=== PATIENT | male | born 1970 | race Caucasian/White ===

== ENCOUNTER 2020-08-28 16:30 | Outpatient (CLI) | payer OTHER, SELFPAY ==
--- NOTE | ~2020-08-28 | MR_ITS ---
EXAMINATION: MR cervical spine wo con DATE: 08/28/2020 17:43 INDICATION: Neck pain. TECHNIQUE: Magnetic resonance imaging (MRI) of the cervical spine was performed without intravenous c ontrast. Sequences included sagittal T2-weighted FSE, sagittal STIR FSE, sagittal T1-weighted FSE, ax ial MERGE, and axial T2-weighted FSE. COMPARISON: None FINDINGS: There is 2 mm retrolisthesis of C5 on C6 and 3 mm retrolisthesis of C6 on C7. Vertebral bod y heights are normal. There is mildly decreased disc height at C4-C5 and C5-C6 and moderately decreas ed disc height at C6-C7. The spinal cord signal intensity is normal. The following disc levels are sp ecifically discussed: C2-C3: The disc does not extend beyond the endplate margin. There is no uncovertebral joint osteoarth ritis. There is mild bilateral facet joint osteoarthritis. There is no neural foraminal stenosis. The re is no central canal stenosis. C3-C4: The disc is bulging. There is mild left uncovertebral joint osteoarthritis. There is no facet joint osteoarthritis. There is mild left neural foraminal stenosis. There is no central canal stenosi s. C4-C5: The disc is bulging. There is mild left uncovertebral joint osteoarthritis. There is no facet joint osteoarthritis. There is no neural foraminal stenosis. There is mild central canal stenosis. C5-C6: The disc is bulging. There is no uncovertebral joint osteoarthritis. There is no facet joint o steoarthritis. There is no neural foraminal stenosis. There is mild central canal stenosis. C6-C7: There is bulging. There is severe bilateral uncovertebral joint osteoarthritis. There is no fa cet joint osteoarthritis. There is mild right and moderate left neural foraminal stenosis. There is m ild central canal stenosis. C7-T1: The disc does not extend beyond the endplate margin. There is no uncovertebral joint osteoarth ritis. There is mild bilateral facet joint osteoarthritis. There is no neural foraminal stenosis. The re is no central canal stenosis. IMPRESSION: 1. Moderate cervical spondylosis. Reviewed, dictated and finalized at location A.
== END 2020-08-28 16:31 | disposition home or self-care (01) ==
LOC: ANHIMG 16:31
PROVIDERS: PCP Family Medicine; Visit Provider Orthopaedic Surgery
DX: M47.812 Spondylosis without myelopathy or radiculopathy, cervical region (principal); M48.02 Spinal stenosis, cervical region
CPT/HCPCS: 72141

== ENCOUNTER 2020-11-20 06:35 | Emergency (ER) | payer OTHER, SELFPAY ==
[2020-11-20] VITALS (27 sets, daily range): BP systolic 136–157; BP diastolic 84–96; PULSE 88–112; RESP 11–24; TEMP 36.8; O2SAT 68–100
--- NOTE | ~2020-11-20 | CT_ITS ---
EXAMINATION: CT soft tissue neck w con DATE: 11/20/2020 07:34 INDICATION: Postoperative swelling and difficulty swallowing following cervical anterior spinal fusio n. TECHNIQUE: Computed tomography (CT) of the neck was performed with 75 mL Omnipaque-350 intravenous co ntrast. Automated exposure control and iterative reconstruction technique were employed. The dose-nalini gth product was 596.93 mGy-cm. COMPARISON: Cervical spine MR dated 08/28/2020 FINDINGS: Moderate cervical spondylosis with interval anterior spinal fusion at C6-C7 with discectomy and inter body bone graft cage and anterior plate and screw fixation. There is prominent soft tissue swelling a t the left side of the visceral space and extending cephalad to a less degree into the left and poste rior aspects of the pharyngeal mucosal space. This likely results from a postoperative hematoma with higher attenuation blood no significant mass effect suggesting the likely origin of the bleeding loca agnes anterior to the left thyroid lobe. Anteriorly the hematoma extends caudally to the superior media stinum along the posterior margin of the manubrium. There is lower attenuation fluid located posterio r to the more trachea which tracks cephalad to the level of the dens. No definitive foci of active co ntrast extravasation identified. Likely surgical clips and suture material within the region of soft tissue swelling/hematoma along the left anterior side of the plate and screw fixation. The hematoma d isplaces the trachea and esophagus anteriorly and towards the right. There is however no significant narrowing of the airway. Small amount of likely residual postoperative gas in the superficial subcuta neous fat cephalad to the medial head of the left clavicle. No evident gas in the deeper soft tissues . The orbits, parotid and submandibular glands and major vessels of the visualized head and neck are un remarkable. No pathologically enlarged cervical lymphadenopathy. Mucosal thickening at the inferior l eft maxillary sinus with small mucous retention cyst along the medial wall of the right maxillary sin us. Multiple dental restorations including at the left maxillary first molar where there is associate d expansile periapical lucency projecting into the left maxillary sinus but with suggestion of a very thin peripheral rim of remodeled bone. No pathologically enlarged cervical lymphadenopathy. Visualiz ed apices of lungs are clear. IMPRESSION: 1. Prominent likely postoperative hematoma extending to the left and posterior aspects of the viscera l space extending to a lesser degree into the pharyngeal mucosal space which displaces but does not s ignificantly narrow the pharyngeal and cervical airway. 2. Moderate cervical spondylosis with interval instrumented C6-C7 anterior spinal fusion. Reviewed, dictated and finalized at location A. IMPRESSION: 1. Prominent likely postoperative hematoma extending to the left and posterior aspects of the visceral space extending to a lesser degree into the pharyngeal mucosal space which displaces but does not significantly narrow the pharyngeal and cervical airway. 2. Moderate cervical spondylosis with interval instrumented C6-C7 anterior spin al fusion.
--- NOTE | 2020-11-20 06:51 | ECG_ITS ---
Measurements Intervals [place] Rate: 100 P: 28 WI: 178 QRS: -23 QRSD: 90 T: 63 QT: 322 QTc: 415 Interpretive Statements SINUS TACHYCARDIA DELAYED PRECORDIAL R/S TRANSITION BORDERLINE T WAVE ABNORMALITY- HIGH LATERAL LEADS BORDERLINE ECG Electronically Signed On 11-20-2020 7:53:14 CDT by Domingo Langford D.O.
[2020-11-20 07:03] LABS: Basophils Absolute Auto 0.1 K/mm3 (0.0-0.1); Basophils Percent Auto 0.9 % (0.2-1.2); Eosinophils Absolute Auto 0.2 K/mm3 (0-0.3); Eosinophils Percent Auto 2.3 % (0-4.4); Hematocrit 40.2 % (42.0-52.0); Hemoglobin 13.5 g/dL (14.0-18.0); Immature Granulocyte Absolute 0.15 K/mm3 (0.00-0.031); Immature Granulocyte Percent A 1.7 % (0-0.5); Lymphocytes Absolute Auto 2.04 K/mm3 (0.9-3.2); Mean Corpuscular HGB Conc 33.6 g/dl (32-36); Mean Corpuscular Hemoglobin 30.3 pg (26-34); Mean Corpuscular Volume 90.3 fl (80-100); Monocytes Percent Auto 10.9 % (2.6-8.5); Neutrophils Absolute Auto 5.4 K/mm3 (1.3-6.7); Neutrophils Percent Auto 61.2 % (45.5-73.1); Platelet Count Result 297 k/mm3 (150-375); Red Blood Count 4.45 M/mm3 (4.6-6.20); Red Cell Distribution Width 13.7 % (11.5-14.5); White Blood Count 8.9 K/mm3 (4.5-10.0)
[2020-11-20 07:15] LABS: Alanine Aminotransferase 54 U/L (4-50); Albumin Level 4.5 g/dL (3.5-5.1); Alkaline Phosphatase 36 U/L (38-126); Anion Gap 6 mmol/L (8-16); Aspartate Amino Transferase 26 U/L (17-59); Bilirubin,Total 0.5 mg/dL (0.2-1.3); Blood Urea Nitrogen 23 mg/dL (9-20); Calcium 9.9 mg/dL (8.4-10.2); Carbon Dioxide 32 mmol/L (22-30); Chloride 101 mmol/L (98-107); Estimated CRCL calculation 86 ml/min; Estimated Glomerular Filt Rate > 60; Glucose 144 mg/dL (65-110); Potassium 4.3 mmol/L (3.4-5.0); Sodium 139 mmol/L (137-145)
[2020-11-20 07:26] LABS: INR 0.9; Prothrombin Time 11.6 Seconds (11.1-14.7); Troponin I < 0.012 ng/mL (0.000-0.034)
[2020-11-20 07:27] LABS: Partial Thromboplastin Time 28.4 SECONDS (22.3-36.8)
[2020-11-20 07:29] LABS: D Dimer 1.69 ug/mL (<0.48)
--- NOTE | 2020-11-20 07:41 | ED.GENADULT ---
HPI - General Adult General Chief complaint: Unspecified Stated complaint: cervical fusion-incision swollen, almost passed ou Time Seen by Provider: 11/20/20 07:36 Source: patient and family Mode of arrival: ambulatory Limitations: no limitations History of Present Illness HPI narrative: Patient is status post cervical fusion by Dr. Bernal on November 12, patient on painkiller, muscle relaxant, had Benadryl last night to help him to sleep. Woke up this morning with swelling at the surgical site, swelling throat and difficulty swallowing, patient denies difficulty breathing. Patient had lightheadedness and dizziness with diaphoresis lasted for 2 min. Patient is not vaccinated for COVID-19. Patient denies any fever, chills, nausea, vomiting, exposure to anybody have similar symptoms. Related Data Allergies Allergy/AdvReac Type Severity Reaction Status Date / Time No Known Allergies Allergy Mild Verified 11/20/20 06:54 Review of Systems Review of Systems: CONSTITUTIONAL: Denies fever, chills, or sweats. EYES: Denies visual changes, redness, or discharge. ENT: Denies rhinorrhea, congestion, sore throat, or otalgia. CARDIOVASCULAR: Denies chest pain, palpitations, or edema. RESPIRATORY: Denies cough or dyspnea. GASTROINTESTINAL: Denies abdominal pain, nausea, vomiting, or diarrhea. GENITOURINARY: Denies dysuria or hematuria. SKIN: Denies rash or itching. MUSCULOSKELETAL: Denies back pain, joint pain, or myalgia. NEUROLOGIC: Denies headache, numbness, or weakness. PSYCHIATRIC: Denies anxiety or depression. PMFSH Past Medical History Medical History Cervical pain (neck) Family History Family History Other Cervical radiculopathy Diabetes mellitus Family history of mental disorder Social History Social History Alcohol intake: never Substance use: never Gender identity (if verbalized by the patient): Female Exam Narrative: General appearance: Well-developed, well-nourished, laying down in bed with a c-collar on, at the bedside, doesn't look in pain or distress. Skin: Normal color Head: Normocephalic, nontraumatic Eyes: Clear conjunctiva ENT: Edematous, erythematous oropharynx including the uvula Neck: Supple, nontender, swollen, tender surgical scar at the neck anteriorly, no discharge, no erythema Chest and respiratory: Airway patent, no respiratory distress, no accessory muscle use Heart: Regular rate/rhythm Abdomen: Soft, nontender, no organomegaly, quiet bowel sounds Vascular: Normal peripheral pulses, normal capillary refill. Musculoskeletal: Normal range of motion, nontender back Neurologic: Alert and oriented ?3, LIAISON ENGINEER is normal as tested, no gross motor deficit Course Course Emergency Course: Stable Consultations Consultation #1: I was able to text the CAT scan report to Dr. Bernal at [phone], Patient symptoms resolved completely after IV Decadron. She has Patient will be discharged home on Medrol Dosepak to see Dr. Bernal in his office tomorrow morning.. Discussed with Dr. Bernal Date: 11/20/20 Time: 11:46 Vital Signs Vital signs: Vital Signs Temperature 36.8 C 11/20/20 06:42 Pulse Rate 105 H 11/20/20 06:42 Respiratory Rate 18 11/20/20 06:42 Blood Pressure 157/96 H 11/20/20 06:42 Pulse Oximetry 100 11/20/20 06:42 Temperature 36.8 C 11/20/20 06:42 Pulse Rate 101 H 11/20/20 09:46 Respiratory Rate 11 L 11/20/20 10:00 Blood Pressure 146/91 H 11/20/20 09:46 Pulse Oximetry 98 11/20/20 09:46 Medical Decision Making MDM Narrative
[2020-11-20 10:18] LABS: EDCOVIDSCREEN Negative (Negative)
[2020-11-20 10:35] LABS: Monoscreen Negative (Negative); Negative Monotest Control Negative (Negative); Positive Monotest Control Positive (Positive)
== END 2020-11-20 12:22 | disposition home or self-care (01) ==
PROVIDERS: Emergency Medicine; Emergency Provider Emergency Medicine; PCP Family Medicine
DX: G89.18 Other acute postprocedural pain (principal); Z98.1 Arthrodesis status; Z20.822 Contact with and (suspected) exposure to COVID-19
CPT/HCPCS: 36415; 70491; 80053; 83605; 84484; 85025; 85380; 85610; 85730; 86308; 87081; 87426; 87880; 93005; 95864; 96374; 99284; C9803; J1100; Q9967; U0003; U0005